=== PATIENT | male | born 1930 | race African-American/Black ===

== ENCOUNTER 2018-03-21 16:32 | Observation (INO) | payer OTHER ==
[~2018-03-21] VITALS: Ht 177.8 cm; Wt 88.5 kg
[~2018-03-21 16:32] MED LIST: FLOMAX; RANI15SY
[2018-03-21] MEDS ORDERED: SODIUM CHLORIDE 0.9% 1,000 ML IV ONE ×3 (16:50→20:24)
[2018-03-21 18:27] LABS: BASOPHILS % 0.4 % (0.0-2.0); EOSINOPHILS % 0.7 % (0.0-5.0); HEMATOCRIT. 42.5 % (42.0-52.0); HEMOGLOBIN. 14.3 g/dL (14.0-18.0); LYMPHOCYTES % 11.5 % (20.0-50.0); MEAN CORPUSCULAR VOLUME 89.4 fL (80.0-94.0); MEAN PLATELET VOLUME 8.1 fl (7.4-10.4); MONOCYTES % 8.7 % (2.0-8.0); NEUTROPHILS % 78.7 % (40.0-76.0); PLATELET 170 x1000/uL (130-400); RED BLOOD CELL COUNT 4.76 mill/uL (4.7-6.1); RED CELL DISTRIBUTION WIDTH 15.1 % (11.6-14.6)
[2018-03-21 18:29] LABS: CHLORIDE 110 mEq/L (98-107)
[2018-03-21 18:30] LABS: INR 1.1; PROTHROMBIN TIME 11.7 sec (9.4-11.6)
[2018-03-21] MEDS ORDERED: PIPERACILLIN/TAZ 3.375G PREMIX 50 ML IV ONE (19:00)
[2018-03-21] MEDS ORDERED: VANCOMYCIN 1 G PREMIX 200 ML IV ONE (19:00)
[2018-03-21 19:23] LABS: CLARITY URINE CLEAR (CLEAR); COLOR URINE YELLOW (YELLOW); KETONES URINE TRACE (NEGATIVE); LEUKOCYTE ESTERASE URINE NEGATIVE (NEGATIVE); NITRITE URINE NEGATIVE (NEGATIVE); OCCULT BLOOD URINE TRACE (NEGATIVE); PROTEIN URINE 1+ (NEGATIVE); SPECIFIC GRAVITY URINE 1.015 (1.005-1.030)
[2018-03-21] MEDS ORDERED: CLONIDINE 0.1MG TABLET PO PRN (21:45)
[2018-03-22] VITALS (8 sets, daily range): BP systolic 114–156; BP diastolic 72–97
[2018-03-22] MEDS ORDERED: MIRA50TA PO (02:15)
[2018-03-22] MEDS ORDERED: QUET25TA PO (02:15)
[2018-03-22] MEDS ORDERED: ASPI-986 PO (02:15)
[2018-03-22] MEDS ORDERED: FURO-151 PO (02:15)
[2018-03-22] MEDS ORDERED: TAMS-11 PO (02:15)
[2018-03-22 06:07] LABS: BASOPHILS % 0.5 % (0.0-2.0); EOSINOPHILS % 0.9 % (0.0-5.0); HEMATOCRIT. 43.3 % (42.0-52.0); HEMOGLOBIN. 14.7 g/dL (14.0-18.0); LYMPHOCYTES % 19.2 % (20.0-50.0); MEAN CORPUSCULAR HEMOGLOBIN 30.3 pg (28.0-32.0); MEAN CORPUSCULAR VOLUME 89.6 fL (80.0-94.0); MEAN PLATELET VOLUME 8.3 fl (7.4-10.4); MONOCYTES % 7.6 % (2.0-8.0); NEUTROPHILS % 71.8 % (40.0-76.0); PLATELET 181 x1000/uL (130-400); RED BLOOD CELL COUNT 4.83 mill/uL (4.7-6.1); RED CELL DISTRIBUTION WIDTH 14.6 % (11.6-14.6)
[2018-03-22 06:26] LABS: CHLORIDE 110 mEq/L (98-107)
[2018-03-22] MEDS: DEXT 5%/0.45% NACL KCL 30MEQ/L 1,000 ML IV SCH ×2 (06:36→14:00)
[2018-03-22] MEDS ORDERED: TAMSULOSIN HCL 0.4MG SR CAPSULE PO SCH (09:00)
[2018-03-22] MEDS ORDERED: POTASSIUM CHLORIDE 20MEQ TABLET SR PO NR (09:15)
[2018-03-22] MEDS ORDERED: POTASSIUM BICARB/CIT ACID 25 MEQ TABLET.EFF PO NR (09:15)
[2018-03-22] MEDS: FAMOTIDINE 20MG TABLET PO SCH ×2 (09:51→19:51)
[2018-03-22] MEDS ORDERED: HYDR-4001 PO (18:26)
[2018-03-22] MEDS ORDERED: PANT40TA4 PO (18:26)
[2018-03-22] MEDS ORDERED: FINA1TAB18 PO (18:26)
== END 2018-03-22 21:15 | disposition home or self-care (01) ==
LOC: ER 16:55 → INTOOBSV 20:39 → 8WST 20:39 → EDBEDREQSVC 20:48 → EDBEDREQ 21:18 → ENRESERV 23:31
PROVIDERS: ADMIT Internal Medicine Critical Care Medicine; ATTEND Internal Medicine Critical Care Medicine
DX: G93.41 Metabolic encephalopathy (principal); E87.6 Hypokalemia; E87.2 Acidosis; F03.90 Unspecified dementia, unspecified severity, without behavioral disturbance, psychotic disturbance, mood disturbance, and anxiety; K21.9 Gastro-esophageal reflux disease without esophagitis; N40.0 Benign prostatic hyperplasia without lower urinary tract symptoms; E86.0 Dehydration; F11.20 Opioid dependence, uncomplicated; G89.29 Other chronic pain; I48.0 Paroxysmal atrial fibrillation; Z79.899 Other long term (current) drug therapy
CPT/HCPCS: 36415; 70450; 71045; 80048; 80053; 81003; 83605; 83880; 84132; 84153; 85025; 85610; 87040; 87086; 93005; 96361; 96365; 96366; 96367; 96368; 99285; G0378; J2543; J3370; J7030; J3480

== ENCOUNTER 2018-05-12 07:47 | Inpatient (IN) | payer OTHER ==
[~2018-05-12] VITALS: Ht 170.2 cm; Wt 84.5 kg
[~2018-05-12 07:47] MED LIST changes: +FINA1TAB18 PO; -FLOMAX; +FURO-151 PO; +HYDR-4001 PO; +MIRA50TA PO; +QUET25TA PO; -RANI15SY; +TAMS-11 PO
[2018-05-12 09:35] LABS: BASOPHILS % 0.4 % (0.0-2.0); EOSINOPHILS % 0.2 % (0.0-5.0); HEMATOCRIT. 42.5 % (42.0-52.0); HEMOGLOBIN. 14.6 g/dL (14.0-18.0); LYMPHOCYTES % 10.5 % (20.0-50.0); MEAN CORPUSCULAR HEMOGLOBIN 30.9 pg (28.0-32.0); MEAN CORPUSCULAR VOLUME 90.3 fL (80.0-94.0); MEAN PLATELET VOLUME 6.9 fl (7.4-10.4); MONOCYTES % 8.9 % (2.0-8.0); PLATELET 231 x1000/uL (130-400); RED BLOOD CELL COUNT 4.71 mill/uL (4.7-6.1); RED CELL DISTRIBUTION WIDTH 15.2 % (11.6-14.6)
[2018-05-12 09:39] LABS: CHLORIDE 105 mEq/L (98-107)
[2018-05-12 10:45] LABS: KETONES URINE TRACE (NEGATIVE); LEUKOCYTE ESTERASE URINE 2+ (NEGATIVE); NITRITE URINE NEGATIVE (NEGATIVE); OCCULT BLOOD URINE 3+ (NEGATIVE); PROTEIN URINE 3+ (NEGATIVE); SPECIFIC GRAVITY URINE 1.037 (1.005-1.030)
[2018-05-12 10:47] LABS: CLARITY URINE TURBID (CLEAR); COLOR URINE BLOODY (YELLOW)
[2018-05-12] MEDS ORDERED: CEFTRIAXONE 1 G PREMIX 50 ML IV ONE (11:15)
[2018-05-12 13:07] LABS: AMMONIA 16 uMol/L (<32)
[2018-05-12] MEDS ORDERED: ACETAMINOPHEN 325MG TABLET PO PRN (16:15)
[2018-05-12 18:08] VITALS: BP 142/82
[2018-05-12 20:00] VITALS: BP 150/88
[2018-05-12] MEDS ORDERED: QUETIAPINE FUMARATE 25MG TABLET PO SCH (21:00)
[2018-05-12] MEDS: LEVOFLOXACIN 500MG PREMIX 100 ML IV SCH (21:35)
[2018-05-12] MEDS: SODIUM CHLORIDE 0.9% INJ 3ML FLUSH IVF SCH (21:36)
[2018-05-13] VITALS: BP 138/83
[2018-05-13 04:00] VITALS: BP 124/74
[2018-05-13] MEDS: SODIUM CHLORIDE 0.9% INJ 3ML FLUSH IVF SCH (05:29)
[2018-05-13 06:37] LABS: BASOPHILS % 0.2 % (0.0-2.0); EOSINOPHILS % 0.4 % (0.0-5.0); HEMATOCRIT. 39.5 % (42.0-52.0); HEMOGLOBIN. 13.4 g/dL (14.0-18.0); LYMPHOCYTES % 15.6 % (20.0-50.0); MEAN CORPUSCULAR HEMOGLOBIN 30.8 pg (28.0-32.0); MEAN CORPUSCULAR VOLUME 90.7 fL (80.0-94.0); MEAN PLATELET VOLUME 7.2 fl (7.4-10.4); MONOCYTES % 10.6 % (2.0-8.0); NEUTROPHILS % 73.2 % (40.0-76.0); PLATELET 212 x1000/uL (130-400); RED BLOOD CELL COUNT 4.36 mill/uL (4.7-6.1); RED CELL DISTRIBUTION WIDTH 15.5 % (11.6-14.6)
[2018-05-13 06:56] LABS: CHLORIDE 106 mEq/L (98-107)
[2018-05-13] MEDS ORDERED: FINASTERIDE 5MG TABLET PO SCH (09:00)
[2018-05-13] MEDS ORDERED: TAMSULOSIN HCL 0.4MG SR CAPSULE PO SCH (09:00)
[2018-05-13] MEDS: LEVOFLOXACIN 500MG PREMIX 100 ML IV SCH (17:30)
[2018-05-13 17:41] VITALS: BP 133/86
[2018-05-13] MEDS ORDERED: AMI2 PO (18:22)
[2018-05-13] MEDS ORDERED: ASPI-1158 PO (18:22)
[2018-05-13] MEDS ORDERED: BUPR-102 PO (18:23)
[2018-05-13] MEDS ORDERED: DILT120C88 PO (18:23)
[2018-05-13] MEDS ORDERED: PANT40TA4 PO (18:24)
[2018-05-13] MEDS ORDERED: FESO8TAB PO (18:24)
[2018-05-13] MEDS ORDERED: TAMS-11 PO (18:26)
[2018-05-13 20:00] VITALS: BP 152/89
[2018-05-13] MEDS ORDERED: ATORVASTATIN CALCIUM 10MG TABLET PO SCH (21:00)
== END 2018-05-13 20:10 | DRG 689 ==
LOC: ER 07:47 → 7WST 11:24 → EDBEDREQSVC 11:28 → EDBEDREQTM 11:28 → EDBEDREQ 11:28 → ENRESERV 12:59 → CANRESERV 13:48 → 6EST 05-13 12:20
PROVIDERS: ADMIT Ophthalmology; ATTEND Ophthalmology
DX: N30.01 Acute cystitis with hematuria (principal); G93.40 Encephalopathy, unspecified; E78.5 Hyperlipidemia, unspecified; F02.80 Dementia in other diseases classified elsewhere, unspecified severity, without behavioral disturbance, psychotic disturbance, mood disturbance, and anxiety; G30.9 Alzheimer's disease, unspecified; I11.0 Hypertensive heart disease with heart failure; I25.10 Atherosclerotic heart disease of native coronary artery without angina pectoris; I48.0 Paroxysmal atrial fibrillation; G89.29 Other chronic pain; M54.9 Dorsalgia, unspecified; I50.9 Heart failure, unspecified; K21.9 Gastro-esophageal reflux disease without esophagitis; N40.0 Benign prostatic hyperplasia without lower urinary tract symptoms; Z80.0 Family history of malignant neoplasm of digestive organs; Z80.7 Family history of other malignant neoplasms of lymphoid, hematopoietic and related tissues; Z79.899 Other long term (current) drug therapy
CPT/HCPCS: 36415; 70450; 71045; 80048; 80053; 81003; 82140; 85025; 87040; 87086; 93005; 96365; 96367; 97162; 97530; 99291; J0696; J1956; A4315